=== PATIENT | female | born 1975 | race Caucasian/White ===

== ENCOUNTER 2022-06-06 23:31 | Emergency (ER) | payer MEDICARE, OTHER ==
[~2022-06-06] VITALS: Ht 160 cm; Wt 98.0 kg
[~2022-06-06 23:31] MED LIST: ALBU90OI INH; ARIP10; ASCO500; AZIT250 PO; BENZ100A PO; BENZ2; BUSP15 PO; CHLO50; CIPR500 PO; CLAR500 PO; CLON1; CLON1 PO; CODBUTACEC PO; CRUTCH3 USE; CYCL10 PO; DIPATR PO; DOXY100; DOXY100 PO; DULO30; ESOM20; FLUO20; FLUSAL1005 IH; FURO40; GABA300; GABA300 PO; GABA400; GABAPENTIN 600 MG; GUAI600ER PO; HALO5; HYDACE5 PO; LANS30EC; LITH300C; LITH300C PO; LITH300CA; LITH450ER; LITHIUM; LOPE2C; LORA1; LORA2 PO; MECL25 PO; METF500C PO; METPRE4DP PO; METR250 PO; MOXI400 PO; NAPR375 PO; NAPR500 PO; NIFE60ER; NYST100SU MT; OMEP20ER PO; OMEP40CA12 PO; ONDA4 PO; ONDA8 PO; OXYACE5T PO; PARO12.5; POTCHL20ER; PRED20 PO; PROACE100 PO; PROM25; PROM25 PO; PROM25S PR; QUET100; QUET100 PO; QUET25; RANI150; RXDIPATR PO; RXHYDACE PO; RXLORA1 PO; RXPROACE PO; RXTRAM50 PO; SERT100; SUCR1 PO; TRAACE PO; TRAM50 PO; TRAZ100; TRAZ50; TRAZODONE
[2022-06-07 01:39] LABS: BASOPHILS ABSOLUTE AUTO 0.04 K/mm3 (0.00-0.23); BASOPHILS PERCENT AUTO 0 % (0-2); EOSINOPHILS ABSOLUTE AUTO 0.17 K/mm3 (0.00-0.68); EOSINOPHILS PERCENT AUTO 2 % (0-6); Hematocrit 42.8 % (33.0-51.0); Hemoglobin 14.2 g/dL (11.5-16.0); IMMATURE GRAN ABSOLUTE AUTO 0.03 K/mm3 (0.00-0.10); IMMATURE GRAN PERCENT AUTO 0 % (0-1); LYMPHOCYTES ABSOLUTE AUTO 2.16 K/mm3 (0.84-5.20); LYMPHOCYTES PERCENT AUTO 23 % (21-46); MONOCYTES ABSOLUTE AUTO 0.46 K/mm3 (0.16-1.47); MONOCYTES PERCENT AUTO 5 % (4-13); Mean Corpuscular HGB 29.6 pg (26.0-34.0); Mean Corpuscular HGB Conc 33.2 g/dL (31.5-36.5); Mean Corpuscular Volume 89 fL (80-100); NEUTROPHILS ABSOLUTE AUTO 6.71 K/mm3 (1.96-9.15); NEUTROPHILS PERCENT AUTO 70 % (41-73); Platelet Count 267 K/mm3 (150-400); RDW Standard Deviation 42.8 fL (35.1-46.3); Red Blood Cell Count 4.79 M/mm3 (3.80-5.20); White Blood Cell Count 9.57 K/mm3 (4.00-11.30)
[2022-06-07 01:59] LABS: Albumin, Blood 3.4 g/dL (3.4-5.0); Albumin/Globulin Ratio 0.9 (0.8-1.8); Bilirubin, Total 0.3 mg/dL (0.1-1.0); Bun/Creatinine Ratio 20.5 (12.0-20.0); Calcium, Blood 8.5 mg/dL (8.5-10.1); Creatinine, Blood 0.44 mg/dL (0.40-1.00); Globulin, Blood 3.9 g/dL (2.2-4.0); Potassium, Blood 3.9 mmol/L (3.5-5.5); Total Protein, Blood 7.3 g/dL (6.4-8.2)
[2022-06-07] MEDS ORDERED: Bisoprolol Fumar5 MG PO (02:11)
[2022-06-07] MEDS ORDERED: Phenergan25 M1 (02:15)
[2022-06-07] MEDS ORDERED: LORA.5 PO (02:16)
[2022-06-07] MEDS ORDERED: DOTTI1 EAC6 TD (02:16)
[2022-06-07] MEDS ORDERED: [UNRECOGNIZED DRUG - CODE] PO (02:16)
== END 2022-06-07 02:48 | disposition home or self-care (01) ==
LOC: ER 23:31
PROVIDERS: Emergency Medicine
DX: R00.2 Palpitations (principal); R73.9 Hyperglycemia, unspecified; J45.909 Unspecified asthma, uncomplicated; Z79.899 Other long term (current) drug therapy; Z88.5 Allergy status to narcotic agent; Z88.0 Allergy status to penicillin; Z88.6 Allergy status to analgesic agent; Z88.1 Allergy status to other antibiotic agents; Z91.041 Radiographic dye allergy status; Z79.84 Long term (current) use of oral hypoglycemic drugs
CPT/HCPCS: 36415; 71045; 80053; 83690; 83880; 84484; 85025; 93005; 93010

== ENCOUNTER → 2024-07-15 | Outpatient (CLI) | payer MEDICARE ==
[~2024-07-15] MED LIST changes: +Bisoprolol Fumar5 MG PO; +DOTTI1 EAC6 TD; +LORA.5 PO; +Phenergan25 M1; +[UNRECOGNIZED DRUG - CODE] PO
[2024-07-15 19:15] LABS: BASOPHILS ABSOLUTE AUTO 0.06 K/mm3 (0.00-0.23); BASOPHILS PERCENT AUTO 0 % (0-2); EOSINOPHILS ABSOLUTE AUTO 0.13 K/mm3 (0.00-0.68); EOSINOPHILS PERCENT AUTO 1 % (0-6); Hematocrit 43.1 % (33.0-51.0); Hemoglobin 13.8 g/dL (11.5-16.0); IMMATURE GRAN ABSOLUTE AUTO 0.03 K/mm3 (0.00-0.10); IMMATURE GRAN PERCENT AUTO 0 % (0-1); LYMPHOCYTES ABSOLUTE AUTO 3.54 K/mm3 (0.84-5.20); LYMPHOCYTES PERCENT AUTO 26 % (21-46); MONOCYTES PERCENT AUTO 4 % (4-13); Mean Corpuscular HGB 28.3 pg (26.0-34.0); Mean Corpuscular Volume 89 fL (80-100); Mean Platelet Volume 11.5 fL (9.1-12.4); NEUTROPHILS ABSOLUTE AUTO 9.46 K/mm3 (1.96-9.15); NEUTROPHILS PERCENT AUTO 69 % (41-73); Platelet Count 411 K/mm3 (150-400); RDW Coefficient Variation 14.6 % (11.7-14.2); RDW Standard Deviation 47.4 fL (35.1-46.3); Red Blood Cell Count 4.87 M/mm3 (3.80-5.20); White Blood Cell Count 13.72 K/mm3 (4.00-11.30)
[2024-07-15 19:35] LABS: Alanine Aminotransfer (ALT/SGP 16 U/L (12-78); Albumin/Globulin Ratio 0.9 (0.8-1.8); Alk Phos 74 U/L (50-136); Anion Gap 11 mmol/L (3-11); Aspartate Aminotrans (AST/SGOT 6 U/L (12-37); Bilirubin, Total 0.3 mg/dL (0.1-1.0); Blood Urea Nitrogen 21 mg/dL (8-24); Bun/Creatinine Ratio 32.1 (12.0-20.0); CHOL/HDL RATIO 6.2; CO2, Blood 27 mmol/L (21-32); Calcium, Blood 9.3 mg/dL (8.5-10.1); Chloride, Blood 102 mmol/L (98-108); Cholesterol 234 mg/dL (50-200); Creatinine, Blood 0.66 mg/dL (0.40-1.00); Globulin, Blood 4.3 g/dL (2.2-4.0); Glomerular Filtration Rate 107 (60-); Glucose, Blood 138 mg/dL (70-99); HDL Cholesterol 38 mg/dL (>39); LDL/HDL RATIO 3.1; Low Density Lipoprotein Chol 118 mg/dL (0-110); Potassium, Blood 4.2 mmol/L (3.5-5.5); Sodium, Blood 136 mmol/L (136-145); Total Protein, Blood 8.3 g/dL (6.4-8.2); Triglycerides 391 mg/dL (30-160); Very Low Density Lipoprot Chol 78 mg/dL (6-32)
[2024-07-15 19:43] LABS: Thyroid Stimulating Hormone 0.521 uIU/mL (0.360-4.800)
[2024-07-15 20:22] LABS: Creatinine, Urine Random 51.4 mg/dL (27.00-270.00)
[2024-07-15 20:24] LABS: Microalb/Creat Ratio UR, Rand 18.541 mg/g (0.000-30.000); Microalbumin, Random Urine 9.53 mg/L (0.000-20.000)
== END ==
LOC: LAB 17:54 → LAB SHORT 17:54
PROVIDERS: Family Medicine
DX: E11.9 Type 2 diabetes mellitus without complications (principal); I47.10 Supraventricular tachycardia, unspecified
CPT/HCPCS: 80053; 80061; 82043; 82570; 83036; 84443; 85025